=== PATIENT | female | born 1990 | race Caucasian/White ===

== ENCOUNTER 2024-03-20 17:28 | Inpatient (IN) | payer MEDICAID ==
[~2024-03-20] VITALS: Ht 180.3 cm; Wt 77.0 kg
[2024-03-20 18:07] VITALS: PULSE 110; RESP 12; O2SAT 100
[2024-03-20] MEDS: HYDROmorphone HCL 2 MG/ML VL/or syr IM ONE (18:08)
[2024-03-20] MEDS: VANCOMYCIN 1GM/200ML 200 ML IV ONE (19:09)
[2024-03-20] MEDS: HYDROmorphone HCL 2 MG/ML VL/or syr IV ONE (19:14)
[2024-03-20 19:16] LABS: Basophils # (auto) 0.1 10 ^3/uL (0-0.2); Eosinophils # (auto) 0 10 ^3/uL (0-0.8); Lymphocytes # (auto) 1.6 10 ^3/uL (0.4-5.4); Neutrophils % (auto) 81.5 % (37.0-80.0)
[2024-03-20 19:18] LABS: Basophils % (auto) 0.4 % (0.0-2.0); Eosinophils % (auto) 0.1 % (0.0-7.0); Hematocrit 36.8 % (36.0-46.0); Hemoglobin 12.4 g/dL (12.2-16.2); Lymphocytes % (auto) 10.9 % (10.0-50.0); Mean Corpuscular Hemoglobin 28.5 pg (28.0-32.0); Mean Corpuscular Hgb Conc. 33.6 g/dL (32.0-36.0); Mean Corpuscular Volume 84.8 fL (80.0-100.0); Monocytes # (auto) 1.1 10 ^3/uL (0-1.3); Monocytes % (auto) 7.1 % (0.0-12.0); Neutrophils # (auto) 12.1 10 ^3/uL (1.6-8.6); Red Blood Cells 4.34 10^6/uL (4.0-5.20); Red Cell Distribution Width 12.7 % (11.8-14.3); White Blood Cell 14.9 10^3/uL (4.4-10.8)
[2024-03-20 19:25] LABS: Chloride 102 mmol/L (98-107); Sodium 139 mmol/L (136-145)
[2024-03-20 19:26] LABS: Anion Gap 12 (5-15); Calcium 9.7 mg/dL (8.7-10.4); Carbon Dioxide 25 mmol/L (20-30)
[2024-03-20 19:30] VITALS: PULSE 93; RESP 20; O2SAT 99
[2024-03-20 19:31] LABS: Glucose 92 mg/dL (74-106)
[2024-03-20 19:34] LABS: BUN/Creatinine Ratio 17.3 (10.0-20.0); Blood Urea Nitrogen 13 mg/dL (9-23)
[2024-03-20 19:35] LABS: Lactic Acid w/Reflex 2.3 mmol/L (0.4-2.0)
[2024-03-20] MEDS ORDERED: ACETAMINOPHEN 325 MG TAB PO PRN ×2 (20:00→20:45)
[2024-03-20] MEDS ORDERED: VANCOMYCIN PER PHARMACY 0 MG IV SCH (20:00)
[2024-03-20] MEDS: PIPERACILLIN-TAZOB 3.375GM 100 ML IV ONE (20:19)
[2024-03-20] MEDS ORDERED: QUET1TAB11 PO (20:22)
[2024-03-20 21:07] LABS: INR 1.03 (0.9-1.15); Prothrombin Time 10.9 sec (9.3-11.8)
[2024-03-20] MEDS: SODIUM CHLORIDE 0.9% 1,000 ML IV SCH (21:08)
[2024-03-20] MEDS: ONDANSETRON HCL 4 MG/2 ML VIAL IV PRN (21:09)
[2024-03-20] MEDS: MORPHINE SULFATE INJ 2 MG/ml SYRG IV PRN (21:11)
[2024-03-20 22:13] LABS: Urine Bacteria None Seen /hpf (None Seen)
[2024-03-20 22:27] LABS: Urine Blood Negative /uL (Negative); Urine Clarity Clear (Clear); Urine Color Yellow (Yellow); Urine Mucus FEW (None Seen); Urine Protein, UAD TRACE (Negative); Urine Specific Gravity 1.024 (1.001-1.035); Urine Urobilinogen Normal (Negative); Urine WBC 3 /hpf (0 - 5); Urine pH 5.5 (5.0-9.0)
[2024-03-20] MEDS: CEFEPIME 1GM/ 50ML 50 ML IV SCH (22:29)
[2024-03-20] MEDS: ACETAMINOPHEN 325 MG TAB PO PRN (23:08)
[2024-03-20] MEDS: QUEtiapine FUMARATE 25 MG TAB PO PRN (23:08)
[2024-03-20] MEDS: KETOROLAC TROMETH 30 MG/ML 1ML VIAL IV ONE (23:46)
[2024-03-21] MEDS: KETOROLAC TROMETH 30 MG/ML 1ML VIAL IV ONE (01:52)
[2024-03-21 02:39] VITALS: PULSE 116
[2024-03-21 03:07] VITALS: PULSE 87; RESP 20; O2SAT 96
[2024-03-21] MEDS: VANCOMYCIN 1GM/200ML 200 ML IV SCH (03:16)
[2024-03-21] MEDS: HYDROcodone-ACET 5/325MG TAB PO PRN (03:17)
[2024-03-21] MEDS ORDERED: MORP15TA PO (03:55)
[2024-03-21 05:00] VITALS: BP 150/91; PULSE 88; RESP 18; TEMP 97.7; O2SAT 98
[2024-03-21 05:22] VITALS: BP 150/91; PULSE 88; RESP 18
[2024-03-21 05:49] LABS: Basophils # (auto) 0.1 10 ^3/uL (0-0.2); Eosinophils # (auto) 0.1 10 ^3/uL (0-0.8); Hemoglobin 11.7 g/dL (12.2-16.2); Lymphocytes # (auto) 1.5 10 ^3/uL (0.4-5.4)
[2024-03-21 05:51] LABS: Anion Gap 8 (5-15); Basophils % (auto) 0.6 % (0.0-2.0); Carbon Dioxide 22 mmol/L (20-30); Chloride 109 mmol/L (98-107); Eosinophils % (auto) 0.4 % (0.0-7.0); Hematocrit 35.8 % (36.0-46.0); Lymphocytes % (auto) 11.5 % (10.0-50.0); Mean Corpuscular Hemoglobin 27.9 pg (28.0-32.0); Mean Corpuscular Hgb Conc. 32.6 g/dL (32.0-36.0); Mean Corpuscular Volume 85.6 fL (80.0-100.0); Monocytes % (auto) 7.7 % (0.0-12.0); Neutrophils # (auto) 10.8 10 ^3/uL (1.6-8.6); Neutrophils % (auto) 79.8 % (37.0-80.0); Potassium 3.6 mmol/L (3.5-5.1); Red Blood Cells 4.19 10^6/uL (4.0-5.20); Red Cell Distribution Width 12.8 % (11.8-14.3); Sodium 139 mmol/L (136-145); White Blood Cell 13.5 10^3/uL (4.4-10.8)
[2024-03-21 05:53] LABS: Calcium 9.4 mg/dL (8.7-10.4)
[2024-03-21 05:58] LABS: BUN/Creatinine Ratio 14.5 (10.0-20.0); Blood Urea Nitrogen 10 mg/dL (9-23); Glucose 121 mg/dL (74-106)
[2024-03-21] MEDS ORDERED: ENOXAPARIN SOD 30 MG/0.3 ML SYRINGE SC SCH (10:00)
[2024-03-21] MEDS ORDERED: NICOTINE 7MG/24HR TOPICAL PATCH TD SCH (10:00)
== END 2024-03-21 07:00 | disposition left against medical advice (07) | DRG 720 ==
LOC: ER 17:28 → TELE 20:22 → TELE-WESTW 03-21 02:40
PROVIDERS: ADMIT Registered Nurse; ATTEND Registered Nurse
DX: A41.9 Sepsis, unspecified organism (principal); F17.200 Nicotine dependence, unspecified, uncomplicated; F41.9 Anxiety disorder, unspecified; S21.002A Unspecified open wound of left breast, initial encounter; X58.XXXA Exposure to other specified factors, initial encounter; N61.0 Mastitis without abscess; Z53.29 Procedure and treatment not carried out because of patient's decision for other reasons; Z85.3 Personal history of malignant neoplasm of breast; Z88.2 Allergy status to sulfonamides; Z80.41 Family history of malignant neoplasm of ovary; Z71.6 Tobacco abuse counseling; Y93.89 Activity, other specified; Y92.89 Other specified places as the place of occurrence of the external cause; Y99.8 Other external cause status
CPT/HCPCS: 36415; 71045; 80048; 81001; 83605; 84702; 85025; 85610; 86300; 87040; 87081; 87205; 96365; 96367; 96372; 96375; 96376; 99291; G0378; J1885; J2405; J2543